=== PATIENT | female | born 1975 | race Two or more races ===

== ENCOUNTER 2017-02-26 21:07 | Emergency (ER) | payer OTHER ==
[2017-02-26 21:26] LABS: URINE SOURCE CLEAN CATCH
[2017-02-26 21:32] LABS: INFLUENZA A NEG (NEG); INFLUENZA B NEG (NEG)
[2017-02-26 21:35] LABS: URINE APPEARANCE CLEAR; URINE BILIRUBIN NEG (NEG); URINE BLOOD 1+ (NEG); URINE COLOR YELLOW; URINE GLUCOSE NEG (NEG); URINE KETONE NEG (NEG); URINE LEUKOCYTE ESTERASE NEG (NEG); URINE NITRATE NEG (NEG); URINE PH 7.5 (5-8); URINE PROTEIN NEG (NEG); URINE SPECIFIC GRAVITY 1.007 (1.003-1.035); URINE UROBILINOGEN 0.2 MG/DL (NEG)
[2017-02-26 21:36] LABS: URINE BACTERIA AUWI NEG (NEGATIVE); URINE SQUAMOUS EPITHELIAL CELL OCC /[HPF]; UWBCS1 AUWI 0-2 (0-5)
[2017-02-26 21:37] LABS: CULTURE INDICATED? NO
== END 2017-02-26 23:15 | disposition home or self-care (01) ==
LOC: CFTX 21:07
PROVIDERS: Nurse Practitioner Family
DX: J06.9 Acute upper respiratory infection, unspecified (principal); R30.0 Dysuria
CPT/HCPCS: 81003; 84703; 87651; 87804; 99282; 99283

== ENCOUNTER → 2017-05-28 | Outpatient (CLI) | payer OTHER ==
--- NOTE | ~2017-05-28 | CT71 ---
[facility] A Service of [facility] RADIOLOGY TEXT RESULTS PATIENT: SAMUEL BOWDEN LOCATION: [facility] : 77 UNIT #: [id number] AGE: [address]: VITOR GALLAGHER SEX: F ORDER DR: [id number] [facility]. [place], [place] [address] [id number] O MR#: [id number] Acc #: [id number] NAME: SAMUEL BOWDEN : 1975 SEX: F STUDY DATE/TIME: 05/28/2017 20:45 UNIT: [facility] ROOM: STUDY DESCRIPTION: CT Head Wo Contrast Attending Physician: Vitor Gallagher Aprn Referring Physician: Vitor Gallagher Aprn Ordering Physician: Vitor Gallagher Aprn Primary Care Physician: [facility] MEDICAL IMAGING REPORT This report is preliminary unless electronic signature is present EXAM Noncontrast head CT HISTORY Headaches x2 days, pain behind eyes and top of head. This CT exam was performed with one or more of the following radiation dose reduction techniques: automatic exposure control, adjustment of mA and/or kV according to patient size, and iterative reconstruction. FINDINGS Axial noncontrast imaging of the brain demonstrates the brain parenchyma to be normal. No mass or hemorrhage. No mass effect or midline shift. Extensive opacification of both maxillary sinuses as well as bilateral ethmoid sinus disease. The frontal sinuses are aplastic. The sphenoid sinus uninvolved. Mastoids and skull base unremarkable. IMPRESSION 1. No acute intracranial abnormality identified. 2. Near complete opacification of the visualized maxillary sinuses as well as bilateral ethmoid sinus disease. This could reflect [id number] sinusitis. Dictated by... Humberto Connelly M.D. THIS IS AN ELECTRONICALLY VERIFIED REPORT Humberto Connelly M.D. at 06/01/2017 1:32 PM RADHA/[facility] A Service [facility] RADIOLOGY TEXT RESULTS PATIENT: SAMUEL BOWDEN LOCATION: [facility] : 77 UNIT #: [id number] AGE: [address]: VITOR GALLAGHER SEX: F ORDER DR: TD: 05/31/2017 22:35 JOB #: [id number] MEDICAL IMAGING REPORT Page 1 of 1 COPY
== END | disposition home or self-care (01) ==
LOC: CCAT 20:29
DX: R51 Headache (principal); R55 Syncope and collapse; J32.2 Chronic ethmoidal sinusitis
CPT/HCPCS: 70450